=== PATIENT | male | born 1990 | race Two or more races ===

== ENCOUNTER 2016-11-06 14:48 | Inpatient (IN) | payer SELFPAY ==
[~2016-11-06] VITALS: Ht 167.6 cm; Wt 79.4 kg
[~2016-11-06 14:48] MED LIST: POT20T PO; VITAMINS; [UNRECOGNIZED DRUG - OTHER]
[2016-11-06] MEDS ORDERED: KETOROLAC TROMETH 30 MG/ML 1ML VIAL IV ONE (15:45)
[2016-11-06] MEDS ORDERED: SODIUM CHLORIDE 0.9% 1,000 ML IV ONE (15:45)
[2016-11-06 15:59] LABS: Basophils # (auto) 0.1 uL; Basophils % (auto) 0.4 % (0.0-2.0); DEFINITIVE VIEW TRANSMISSION; Eosinophils # (auto) 0.3 uL; Eosinophils % (auto) 2.4 % (0.0-7.0); Hematocrit 51.2 % (41.0-53.0); Hemoglobin 17.4 g/dL (13.5-17.5); Lymphocytes # (auto) 2.3 uL; Lymphocytes % (auto) 16.6 % (10.0-50.0); Mean Corpuscular Hemoglobin 28.9 pg (28.0-32.0); Mean Corpuscular Volume 84.9 fL (80.0-100.0); Mean Platelet Volume 8.8 fL (7.4-10.4); Monocytes # (auto) 0.8 uL; Monocytes % (auto) 5.8 % (0.0-12.0); Neutrophils # (auto) 10.2 uL; Neutrophils % (auto) 74.8 % (37.0-80.0); Platelet Count (auto) 342 10^3/uL (140-450); Red Cell Distribution Width 12.7 % (11.6-16.0); White Blood Cell 13.6 10^3/uL (4.4-10.8)
[2016-11-06 16:17] LABS: BUN/Creatinine Ratio 12.2; Calcium 8.9 mg/dL (8.5-10.1)
[2016-11-06 16:26] LABS: Bilirubin, Total 0.3 mg/dL (0.2-1.0); Total Protein 8.1 g/dL (6.4-8.2)
[2016-11-06 16:31] LABS: Potassium 1.7 mmol/L (3.5-5.1)
[2016-11-06] MEDS ORDERED: NITROGLYCERIN 0.4 MG SL TAB SL PRN (16:45)
[2016-11-06] MEDS ORDERED: HYDROcodone-ACET 5/325MG TAB PO PRN (16:45)
[2016-11-06] MEDS ORDERED: POTASSIUM CHL 20 Meq TABLET PO ONE (16:45)
[2016-11-06] MEDS ORDERED: POTASSIUM CHL 20MEQ/100ML 100 ML IV ONE (16:45)
[2016-11-06] MEDS ORDERED: LACTULOSE 20Gm/30ML SOLN PO PRN (16:45)
[2016-11-06] MEDS ORDERED: MORPHINE SULF INJ 2 MG/ML SYRINGE 1ML IV PRN ×2 (16:45)
[2016-11-06] MEDS ORDERED: TEMAZEPAM 15 MG CAP PO PRN (16:45)
[2016-11-06] MEDS ORDERED: LORazepam 0.5 MG TAB PO PRN (16:45)
[2016-11-06] MEDS ORDERED: ACETAMINOPHEN 500 MG TAB PO PRN (16:45)
[2016-11-06] MEDS ORDERED: PROCHLORPERAZINE EDISYLATE 5 MG/ML 2ML VIAL IV PRN (16:45)
[2016-11-06] MEDS ORDERED: cefTRIAXone 1GM/50ML D5W 50 ML IV ONE (17:30)
[2016-11-06] MEDS: SOD CHL 0.9%/ KCL 40MEQ 1,000 ML IV SCH (18:00)
[2016-11-06] MEDS: POTASSIUM CHL 20 Meq TABLET PO SCH ×2 (18:22→22:06)
[2016-11-06 20:00] VITALS: BP 117/63
[2016-11-06 22:00] VITALS: BP 117/63
[2016-11-07] MEDS: POTASSIUM CHL 20 Meq TABLET PO SCH ×2 (01:49→05:34)
[2016-11-07] MEDS: SOD CHL 0.9%/ KCL 40MEQ 1,000 ML IV SCH (02:34)
[2016-11-07 05:00] VITALS: BP_SYST 101; BP_SYST 104; BP_DIAS 60
[2016-11-07 05:26] LABS: Basophils # (auto) 0 uL; Basophils % (auto) 0.4 % (0.0-2.0); DEFINITIVE VIEW TRANSMISSION; Eosinophils # (auto) 0.8 uL; Eosinophils % (auto) 8.4 % (0.0-7.0); Hematocrit 44.2 % (41.0-53.0); Hemoglobin 14.9 g/dL (13.5-17.5); Lymphocytes # (auto) 3.1 uL; Lymphocytes % (auto) 31.8 % (10.0-50.0); Mean Corpuscular Hemoglobin 28.9 pg (28.0-32.0); Mean Corpuscular Hgb Conc. 33.8 g/dL (32.0-36.0); Mean Corpuscular Volume 85.6 fL (80.0-100.0); Mean Platelet Volume 9.1 fL (7.4-10.4); Monocytes # (auto) 0.6 uL; Monocytes % (auto) 6.2 % (0.0-12.0); Neutrophils # (auto) 5.3 uL; Neutrophils % (auto) 53.2 % (37.0-80.0); Platelet Count (auto) 307 10^3/uL (140-450); Red Cell Distribution Width 13.4 % (11.6-16.0); White Blood Cell 9.9 10^3/uL (4.4-10.8)
[2016-11-07 05:56] LABS: Albumin 3.2 g/dL (3.4-5.0); BUN/Creatinine Ratio 9.8; Bilirubin, Total 0.5 mg/dL (0.2-1.0); Calcium 7.9 mg/dL (8.5-10.1); Potassium 3.9 mmol/L (3.5-5.1); Total Protein 6.5 g/dL (6.4-8.2)
[2016-11-07 08:00] VITALS: BP 107/74
[2016-11-07 09:00] VITALS: BP 107/74
[2016-11-07] MEDS ORDERED: cefTRIAXone 1GM/50ML D5W 50 ML IV SCH (09:00)
[2016-11-07 09:42] VITALS: BP 107/74
[2016-11-07 12:42] LABS: Urine Bilirubin Negative (Negative); Urine Blood Negative /uL (Negative); Urine Color Yellow (Yellow); Urine Glucose Normal (Normal); Urine Ketone Negative (Negative); Urine Nitrite Negative (Negative); Urine RBC <1 /hpf (0 - 3); Urine Squamous Epithelial Cell FEW /hpf (<5); Urine Urobilinogen Normal (Negative)
== END 2016-11-07 11:10 | disposition home or self-care (01) | DRG 93 ==
LOC: ER 14:48 → TELE 14:49 → TELE-CENTR 19:50
PROVIDERS: ADMIT Internal Medicine; ATTEND Internal Medicine
DX: G72.3 Periodic paralysis (principal); F12.90 Cannabis use, unspecified, uncomplicated; N20.0 Calculus of kidney; R63.1 Polydipsia; Z83.3 Family history of diabetes mellitus; Z79.899 Other long term (current) drug therapy
CPT/HCPCS: 36415; 71010; 76775; 80053; 80061; 81001; 82533; 84133; 85025; 85652; 87086; 93005; 96365; 96375; 99291; J0696; J1885; J3480

== ENCOUNTER 2022-07-29 17:37 | Inpatient (IN) | payer MEDICAID ==
[~2022-07-29] VITALS: Ht 170.2 cm; Wt 83.1 kg
[~2022-07-29 17:37] MED LIST changes: -VITAMINS; -[UNRECOGNIZED DRUG - OTHER]
[2022-07-29] MEDS ORDERED: SODIUM CHLORIDE 0.9% 1,000 ML IV ONE ×3 (18:15→21:30)
[2022-07-29 18:20] LABS: Basophils # (auto) 0 10 ^3/uL (0-0.2); Basophils % (auto) 0.2 % (0.0-2.0); Eosinophils # (auto) 0.2 10 ^3/uL (0-0.8); Eosinophils % (auto) 1.3 % (0.0-7.0); Hematocrit 48.9 % (41.0-53.0); Hemoglobin 16.6 g/dL (13.5-17.5); Lymphocytes # (auto) 2.6 10 ^3/uL (0.4-5.4); Lymphocytes % (auto) 16.2 % (10.0-50.0); Mean Corpuscular Hemoglobin 29.3 pg (28.0-32.0); Monocytes % (auto) 6.4 % (0.0-12.0); Neutrophils # (auto) 12.4 10 ^3/uL (1.6-8.6); Neutrophils % (auto) 75.9 % (37.0-80.0); Nucleated Red Blood Cells % 0.2 %; Red Blood Cells 5.68 10^6/uL (4.5-5.90); Red Cell Distribution Width 13.4 % (11.8-14.3); White Blood Cell 16.3 10^3/uL (4.4-10.8)
[2022-07-29 18:34] LABS: Albumin 3.9 g/dL (3.4-5.0); BUN/Creatinine Ratio 16.7; Calcium 9.2 mg/dL (8.5-10.1); Magnesium 2.5 mg/dL (1.6-2.6)
[2022-07-29 18:36] LABS: Bilirubin, Total 0.4 mg/dL (0.2-1.0); Total Protein 7.9 g/dL (6.4-8.2)
[2022-07-29 18:40] LABS: Potassium 1.9 mmol/L (3.5-5.1)
[2022-07-29] MEDS ORDERED: POTASSIUM CHL 20 Meq TABLET PO ONE (18:45)
[2022-07-29] MEDS ORDERED: ACETAMINOPHEN 325 MG TAB PO PRN (21:30)
[2022-07-29] MEDS ORDERED: NITROGLYCERIN 0.4 MG SL TAB SL PRN (21:30)
[2022-07-29] MEDS ORDERED: MORPHINE SULFATE INJ 2 MG/ml SYRG IV PRN (21:30)
[2022-07-30] MEDS: SODIUM CHLORIDE 0.9% 1,000 ML IV SCH ×6 (03:21→22:00)
[2022-07-30 05:41] LABS: Basophils # (auto) 0 10 ^3/uL (0-0.2); Basophils % (auto) 0.4 % (0.0-2.0); Eosinophils # (auto) 0.5 10 ^3/uL (0-0.8); Eosinophils % (auto) 4.5 % (0.0-7.0); Hemoglobin 14.9 g/dL (13.5-17.5); Lymphocytes # (auto) 2.8 10 ^3/uL (0.4-5.4); Lymphocytes % (auto) 26.4 % (10.0-50.0); Mean Corpuscular Hemoglobin 29.1 pg (28.0-32.0); Mean Corpuscular Hgb Conc. 33.9 g/dL (32.0-36.0); Mean Corpuscular Volume 85.9 fL (80.0-100.0); Monocytes # (auto) 0.8 10 ^3/uL (0-1.3); Monocytes % (auto) 7.2 % (0.0-12.0); Neutrophils # (auto) 6.5 10 ^3/uL (1.6-8.6); Neutrophils % (auto) 61.5 % (37.0-80.0); Nucleated Red Blood Cells % 0.1 %; Red Blood Cells 5.12 10^6/uL (4.5-5.90); Red Cell Distribution Width 13.4 % (11.8-14.3); White Blood Cell 10.6 10^3/uL (4.4-10.8)
[2022-07-30 06:03] LABS: Albumin 3.1 g/dL (3.4-5.0); BUN/Creatinine Ratio 10.4; Calcium 7.5 mg/dL (8.5-10.1)
[2022-07-30 06:06] LABS: Bilirubin, Total 0.7 mg/dL (0.2-1.0); Total Protein 6.4 g/dL (6.4-8.2)
[2022-07-30 06:21] LABS: Potassium 2.4 mmol/L (3.5-5.1)
[2022-07-30] MEDS ORDERED: POTASSIUM CHL 20MEQ/100ML 100 ML IV ONE ×2 (09:23→11:18)
[2022-07-30] MEDS: POTASSIUM CHL 20MEQ/100ML 100 ML IV SCH ×2 (09:24→11:19)
[2022-07-30 21:50] LABS: Albumin 3.7 g/dL (3.4-5.0); BUN/Creatinine Ratio 5.3; Calcium 8.5 mg/dL (8.5-10.1)
[2022-07-30 21:52] LABS: Bilirubin, Total 0.6 mg/dL (0.2-1.0); Total Protein 7.3 g/dL (6.4-8.2)
[2022-07-30 22:11] VITALS: BP 106/57
[2022-07-30 22:26] LABS: Potassium 2.9 mmol/L (3.5-5.1)
[2022-07-31] MEDS: SODIUM CHLORIDE 0.9% 1,000 ML IV SCH ×4 (00:10→21:53)
[2022-07-31] MEDS: POTASSIUM CHL 20MEQ/100ML 100 ML IV SCH ×6 (00:30→23:57)
[2022-07-31 05:00] VITALS: BP 104/62
[2022-07-31 08:22] LABS: Basophils # (auto) 0.1 10 ^3/uL (0-0.2); Basophils % (auto) 0.6 % (0.0-2.0); Eosinophils # (auto) 0.4 10 ^3/uL (0-0.8); Eosinophils % (auto) 4.4 % (0.0-7.0); Hematocrit 44.2 % (41.0-53.0); Hemoglobin 16.1 g/dL (13.5-17.5); Lymphocytes % (auto) 31.2 % (10.0-50.0); Mean Corpuscular Hemoglobin 30.9 pg (28.0-32.0); Mean Corpuscular Hgb Conc. 36.3 g/dL (32.0-36.0); Monocytes # (auto) 0.8 10 ^3/uL (0-1.3); Monocytes % (auto) 8.4 % (0.0-12.0); Neutrophils # (auto) 5.3 10 ^3/uL (1.6-8.6); Neutrophils % (auto) 55.4 % (37.0-80.0); Nucleated Red Blood Cells % 0.8 %; Red Cell Distribution Width 13.4 % (11.8-14.3); White Blood Cell 9.6 10^3/uL (4.4-10.8)
[2022-07-31 08:40] LABS: Calcium 8.2 mg/dL (8.5-10.1)
[2022-07-31 08:47] LABS: Albumin 3.7 g/dL (3.4-5.0); BUN/Creatinine Ratio 5.7; Bilirubin, Total 0.6 mg/dL (0.2-1.0); Magnesium 2.4 mg/dL (1.6-2.6); Total Protein 6.8 g/dL (6.4-8.2)
[2022-07-31 09:00] VITALS: BP 117/68
[2022-07-31] MEDS ORDERED: POTASSIUM CHL 20 Meq TABLET PO ONE (09:15)
[2022-07-31 13:00] VITALS: BP 113/72
[2022-07-31 17:00] VITALS: BP 102/55
[2022-07-31 17:30] LABS: Urine Bacteria NONE SEEN /hpf (None Seen); Urine Blood Negative /uL (Negative); Urine Specific Gravity 1.012 (1.001-1.035); Urine WBC 1 /hpf (0 - 3)
[2022-07-31 19:38] LABS: Albumin 4.1 g/dL (3.4-5.0); BUN/Creatinine Ratio 5.5; Calcium 9.2 mg/dL (8.5-10.1); Potassium 3.1 mmol/L (3.5-5.1)
[2022-07-31 19:41] LABS: Bilirubin, Total 0.5 mg/dL (0.2-1.0); Total Protein 8.6 g/dL (6.4-8.2)
[2022-07-31] MEDS ORDERED: POTASSIUM EFFERVESENT TAB 25 MEQ GT ONE (21:00)
[2022-07-31] MEDS ORDERED: POTASSIUM EFFERVESENT TAB 25 MEQ PO ONE (21:30)
[2022-07-31 21:58] VITALS: BP 110/56
[2022-08-01] MEDS: POTASSIUM CHL 20MEQ/100ML 100 ML IV SCH (02:06)
[2022-08-01] MEDS: SODIUM CHLORIDE 0.9% 1,000 ML IV SCH ×2 (04:00→09:25)
[2022-08-01 05:00] VITALS: BP 107/59
[2022-08-01 08:09] LABS: Basophils # (auto) 0.1 10 ^3/uL (0-0.2); Basophils % (auto) 0.8 % (0.0-2.0); Eosinophils # (auto) 0.3 10 ^3/uL (0-0.8); Eosinophils % (auto) 3.3 % (0.0-7.0); Hematocrit 48.9 % (41.0-53.0); Hemoglobin 17.3 g/dL (13.5-17.5); Lymphocytes # (auto) 3.2 10 ^3/uL (0.4-5.4); Lymphocytes % (auto) 34.3 % (10.0-50.0); Mean Corpuscular Hemoglobin 30.6 pg (28.0-32.0); Mean Corpuscular Hgb Conc. 35.3 g/dL (32.0-36.0); Mean Corpuscular Volume 86.5 fL (80.0-100.0); Monocytes # (auto) 0.9 10 ^3/uL (0-1.3); Monocytes % (auto) 9.2 % (0.0-12.0); Neutrophils # (auto) 4.9 10 ^3/uL (1.6-8.6); Neutrophils % (auto) 52.4 % (37.0-80.0); Nucleated Red Blood Cells % 0.1 %; Red Blood Cells 5.65 10^6/uL (4.5-5.90); Red Cell Distribution Width 13.7 % (11.8-14.3); White Blood Cell 9.3 10^3/uL (4.4-10.8)
[2022-08-01 08:27] LABS: Calcium 8.8 mg/dL (8.5-10.1); Potassium 3.8 mmol/L (3.5-5.1)
[2022-08-01 08:31] LABS: BUN/Creatinine Ratio 5.7; Bilirubin, Total 0.9 mg/dL (0.2-1.0); Total Protein 7.1 g/dL (6.4-8.2)
[2022-08-01 09:05] VITALS: BP 116/63
[2022-08-01] MEDS ORDERED: POTASSIUM CHL 20 Meq TABLET PO ONE (11:30)
[2022-08-01] MEDS ORDERED: POTA-220 PO (12:26)
[2022-08-01 13:00] VITALS: BP 121/83
== END 2022-08-01 15:00 | disposition home or self-care (01) | DRG 351 ==
LOC: ER 17:37 → TELE 21:24 → TELE-WESTW 07-30 18:50
PROVIDERS: ADMIT Nurse Practitioner Family; ATTEND Internal Medicine
DX: M62.82 Rhabdomyolysis (principal); D72.829 Elevated white blood cell count, unspecified; E87.6 Hypokalemia; R74.01 Elevation of levels of liver transaminase levels; Z20.822 Contact with and (suspected) exposure to COVID-19; F12.90 Cannabis use, unspecified, uncomplicated
CPT/HCPCS: 36415; 80053; 81001; 82550; 83735; 84133; 85025; 87040; 87426; 93005; 96360; 96361; 99291; G0378; J3480

== ENCOUNTER 2025-03-05 09:48 | Inpatient (IN) | payer MEDICAID, OTHER ==
[~2025-03-05] VITALS: Ht 170.2 cm; Wt 90.9 kg
[~2025-03-05 09:48] MED LIST changes: -POT20T PO; +POTA-220 PO
[2025-03-05] MEDS: SODIUM CHLORIDE 0.9% 1,000 ML IV ONE (10:00)
--- NOTE | 2025-03-05 10:32 | ED.PDOC ---
Back pain HPI HPI Comments 34 y/o MNOHEMY, presents to the ED for CC of generalized body pain. EMS reports, patient is coming from home where he c/o generalized musculoskeletal pain with associated weakness x1day. Patient relays, to have experienced similar symptoms in the past when potassium levels are low; believes to be having a hypokalemia crisis. Patient comments, that he does taken potassium capsules as prescribed by his PCP however, has been out of prescription [id number]. Patient denies nausea, vomiting, chills, dizziness, or cold symptoms. No other symptoms or modifying factors present at this time. Chief Complaint: Body Pain Time Seen by MD: 10:00 Primary Care Provider: none Reviewed Notes: Nurses Notes, Short Piece Handler Notes, Medications, Allergies Allergies: Coded Allergies: NO KNOWN ALLERGIES (Unverified , 12/18/10) Home Meds Active Scripts Potassium Chloride (Klor-Con M20) 20 Meq Tab, 40 MEQ PO DAILY for 30 Days, #60 TAB 6 Refills Prov:PATTI MCCLELLAN MD 08/01/22 Information Source: Patient, Emergency Med Personnel Mode of Arrival: EMS Timing: Days Duration: Since onset Location of Back pain: Other (genralized body pain) Severity: Moderate Prehospital treatment: None Onset: Spontaneous History of: None Modifying Factors: Nothing Past Medical History PAST MEDICAL HISTORY: Denies Surgical History: Denies all surgeries Family History Family History: Unknown Social History Smoker: Non-Smoker Alcohol: Denies ETOH Use Drugs: Marijuana Lives In: Home Constitutional: reports: weakness; denies: chills, diaphoresis, fatigue, fever, malaise, sweats, others EENTM: denies: blurred vision, double vision, ear bleeding, ear discharge, ear drainage, ear pain, ear ringing, eye pain, eye redness, hearing loss, mouth pain, mouth swelling, nasal discharge, nose bleeding, nose congestion, nose pain, photophobia, tearing, throat pain, throat swelling, voice changes, others Respiratory: denies: cough, hemoptysis, orthopnea, SOB at rest, shortness of breath, SOB with excertion, stridor, wheezing, others Cardiovascular: denies: chest pain, dizzy spells, diaphoresis, Dyspnea on exertion, edema, irregular heart beat, left arm pain, lightheadedness, palpitations, PND, syncope, others Gastrointestinal: denies: abdomen distended, abdominal pain, blood streaked bowels, constipated, diarrhea, dysphagia, difficulty swallowing, hematemesis, melena, nausea, poor appetite, poor fluid intake, rectal bleeding, rectal pain, vomiting, others Genitourinary: denies: burning, dysuria, flank pain, frequency, hematuria, incontinence, penile discharge, penile sore, pain, testicle pain, testicle swelling, urgency, others Neurological: denies: dizziness, fainting, headache, left sided numbness, left sided weakness, numbness, paresthesia, pre-existing deficit, right sided numbness, right sided weakness, seizure, speech problems, tingling, tremors, weakness, others Musculoskeletal: reports: others (genralized body pain); denies: back pain, gout, joint pain, joint swelling, muscle pain, muscle stiffness, neck pain Integumetry: denies: bruises, change in color, change in hair/nails, dryness, laceration, lesions, lumps, rash, wounds, others Allergic/Immunocompromised: denies: Difficulty Healing, Frequent Infections, Hives, Itching, others Hematologic/Lymphatic: denies: anemia, blood clots, easy bleeding, easy bruising, swollen glands, others Endocrine: denies: excessive hunger, excessive sweating, excessive thirst, excessive urination, flushing, intolerance to cold, intolerance to heat, unexplained weight gain, unexplained weight loss, others Psychiatric: denies: anxiety, bipolar disorder, depression, hopeless, panic disorder, schizophrenia, sleepless, suicidal, others All Other Systems: Reviewed and Negative Physical Exam General Appearance: No Apparent Distress, Normal HEENT: Normal ENT Inspection, Pharynx Normal Neck: Full Range of Motion, Non-Tender, Normal, Normal Inspection Respiratory: Chest Non-Tender, Lungs Clear, No Accessory Muscle Use, No Respiratory Distress, Normal Breath Sounds Cardiovascular: No Edema, No Murmur, No Gallop, Normal Peripheral Pulses, Regular Rate/Rhythm Breast Exam: Deferred Gastrointestinal: No Organomegaly, Non Tender, No Pulsatile Mass, Normal Bowel Sounds, Soft Genitalia: Deferred Pelvic: Deferred Rectal: Deferred Extremities: No calf tenderness, Normal capillary refill, Normal inspection, Normal range of motion, Non-tender, No pedal edema Musculoskeletal : Apperance: Normal Neurologic: Alert, research management associate II-XII nml as Tested, No Motor Deficits, Normal Affect, Normal Mood, No Sensory Deficits Cerebellar Function: Normal Reflexes: Normal Skin: Dry, Normal Color, Warm Lymphatic: No Adenopathy Was a procedure done? Was a procedure done?: No Back Pain Differential Dx Differential Diagnosis: Musculoskeletal Pain, Other (hypokalemia) X-Ray, Labs, Meds, VS Vital Signs Date Time Temp Pulse Resp B/P (MAP) Pulse Ox O2 Delivery O2 Flow Rate FiO2 03/05/25 13:00 57 136/72 (93) 99 03/05/25 13:00 57 99 Room Air* 0 21 03/05/25 11:15 98.3 72 24 133/75 (94) 99 98.3 03/05/25 10:00 56 03/05/25 09:58 98.1 60 18 135/76 100 98.1 Lab Test 03/05/25 15:29 03/05/25 10:52 Range/Units Urine Color Light-yellow Yellow Urine Clarity Clear Clear Urine pH 6.5 5.0-9.0 Urine Specific [place] 1.014 1.001-1.035 Urine Protein Negative Negative Urine Ketones 1+ H Negative Urine Blood Negative Negative /uL Urine Nitrite Negative Negative Urine Bilirubin Negative Negative Urine Urobilinogen Normal Negative mg/dL Urine Leukocyte Esterase Negative Negative /uL Urine RBC 2 0 - 3 /hpf Urine Microscopic WBC 2 0-3 /HPF Urine Squamous Epithelial Cells None seen <5 /hpf Urine Bacteria None seen None Seen /hpf Urine Glucose Normal Normal mg/dL White Blood Count 14.5 H 4.4-10.8 10^3/uL Red Blood Count 6.19 H 4.5-5.90 10^6/uL Hemoglobin 18.8 H 13.5-17.5 g/dL Hematocrit 52.2 41.0-53.0 % Mean Corpuscular Volume 84.3 80.0-100.0 fL Mean Corpuscular Hemoglobin 30.4 28.0-32.0 pg Mean Corpuscular Hemoglobin Concent 36.1 H 32.0-36.0 g/dL Red Cell Distribution Width 13.2 11.8-14.3 % Platelet Count 313 140-450 10^3/uL Mean Platelet Volume 8.2 6.9-10.8 fL Neutrophils (%) (Auto) 78.1 37.0-80.0 % Lymphocytes (%) (Auto) 14.8 10.0-50.0 % Monocytes (%) (Auto) 6.6 0.0-12.0 % Eosinophils (%) (Auto) 0.1 0.0-7.0 % Basophils (%) (Auto) 0.4 0.0-2.0 % Neutrophils # (Auto) 11.3 H 1.6-8.6 10 ^3/uL Lymphocytes # (Auto) 2.1 0.4-5.4 10 ^3/uL Monocytes # (Auto) 0.9 0-1.3 10 ^3/uL Eosinophils # (Auto) 0 0-0.8 10 ^3/uL Basophils # (Auto) 0.1 0-0.2 10 ^3/uL Nucleated Red Blood Cells 0.1 % Sodium Level 143 136-145 mmol/L Potassium Level 1.5 *L 3.5-5.1 mmol/L Chloride Level 108 H 98-107 mmol/L Carbon Dioxide Level 21 20-31 mmol/L Anion Gap 14 5-15 Blood Urea Nitrogen 9 9-23 mg/dL Creatinine 0.85 0.700-1.30 mg/dL Glomerular Filtration Rate Calc 118 >90 mL/min BUN/Creatinine Ratio 10.6 10.0-20.0 Serum Glucose 124 H 74-106 mg/dL Calcium Level 9.6 8.7-10.4 mg/dL Phosphorus Level 0.5 L 2.4-5.1 mg/dL Magnesium Level 1.9 1.6-2.6 mg/dL Current Medications Medications (Trade) Dose Ordered Sig/Bhaskar Route Start Time Stop Time Status Last Admin Sodium Chloride 1,000 ml @ 1,000 mls/hr Q1H ONCE IV 03/05/25 10:00 03/05/25 10:59 DC 03/05/25 10:00 Potassium Chloride 100 ml @ 50 mls/hr Q2H IV 03/05/25 14:30 03/05/25 22:29 03/05/25 16:38 Time of 1ST Reevaluation: 10:30 Reevaluation 1ST: Unchanged Patient Education/Counseling: Diagnosis, Treatment Family Education/Counseling: No Family Present SEPSIS Sepsis Screen Date sepsis recognized/suspect: Mar 05, 2025 Time Sepsis recognized/suspect: 955 Recent Procedure: No On Antibiotic Therapy: No Respiratory Rate >20: No Heart Rate >90: No Temp<36 C (96.8 F) or >38.3 C: No SBP <90 or MAP <65 mmHG: No New Acute Mental Status Change: No Is the patient on CPAP, BIPAP,: No Physician Orders Electrocardigram (03/05/25 09:55) Electrocardigram (03/05/25 09:54) Potassium Chl 20meq/100ml (03/05/25 14:30) Vital Signs Date Time Temp Pulse Resp B/P (MAP) Pulse Ox O2 Delivery O2 Flow Rate FiO2 03/05/25 13:00 57 136/72 (93) 99 03/05/25 13:00 57 99 Room Air* 0 21 03/05/25 11:15 98.3 72 24 133/75 (94) 99 98.3 03/05/25 10:00 56 03/05/25 09:58 98.1 60 18 135/76 100 98.1 Laboratory Tests Test 03/05/25 10:52 White Blood Count 14.5 10^3/uL (4.4-10.8) H Medications Medications Dose Ordered Sig/Bhaskar Route Start Time Stop Time Status Last Admin Dose Admin Potassium Chloride 100 ml @ 50 mls/hr Q2H IV 03/05/25 14:30 03/05/25 22:29 03/05/25 16:38 Sodium Chloride 1,000 ml @ 1,000 mls/hr Q1H ONCE IV 03/05/25 10:00 03/05/25 10:59 DC 03/05/25 10:00 Departure 1 Departure Time of Disposition: 17:24 (Patient with severe hypokalemia and muscle weakness. We will admit patient for further workup and expert consultation) Impression: Primary Impression: Hypokalemia Additional Impression: Generalized weakness Disposition: ADMITTED INPATIENT Admit to: Tele Condition: Guarded Critical Care Note Critical Care Time?: Yes Critical care comment: Severe hypokalemia and generalized weakness Authorized and Performed by: Ramona Lindsey MD Total critical care time: Approximately 39 minutes Due to a high probability of clinically significant, life threatening deterioration, the patient required my highest level of preparedness to intervene emergently and I personally spent this critical care time directly and personally managing the patient. This critical care time included obtaining a history; examining the patient; pulse oximetry; ordering and review of studies; arranging urgent treatment with development of a management plan; evaluation of patient's response to treatment; frequent reassessment; and, discussions with other providers. This critical care time was performed to assess and manage the high probability of imminent, life-threatening deterioration that could result in multi-organ failure. It was exclusive of separately billable procedures and treating other patients and teaching time. Please see my other sections and the rest of the note for further information on patient assessment and treatment. Stability Stability form required: No Heart Score Heart Score: Heart Score Response (Comments) Value History N/A 0 EKG N/A 0 Age N/A 0 Risk Factors N/A 0 Troponin N/A 0 Total 0 I personally scribed for RAMONA LINDSEY MD ([email or web address]) on 03/05/25 at 10:32. Electronically submitted by Alivia Solis ([email or web address]). RAMONA LINDSEY MD Mar 05, 2025 10:32
[2025-03-05 11:14] LABS: Hemoglobin 18.8 g/dL (13.5-17.5)
[2025-03-05 11:16] LABS: Hematocrit 52.2 % (41.0-53.0); Mean Corpuscular Hemoglobin 30.4 pg (28.0-32.0); Mean Corpuscular Volume 84.3 fL (80.0-100.0); Nucleated Red Blood Cells % 0.1 %
[2025-03-05 11:24] LABS: Anion Gap 14 (5-15); Carbon Dioxide 21 mmol/L (20-31); Sodium 143 mmol/L (136-145)
[2025-03-05 11:25] LABS: Calcium 9.6 mg/dL (8.7-10.4)
[2025-03-05 11:30] LABS: BUN/Creatinine Ratio 10.6 (10.0-20.0); Magnesium 1.9 mg/dL (1.6-2.6)
[2025-03-05 11:34] LABS: Blood Urea Nitrogen 9 mg/dL (9-23); Chloride 108 mmol/L (98-107); Glucose 124 mg/dL (74-106)
[2025-03-05 11:35] LABS: Potassium 1.5 mmol/L (3.5-5.1)
[2025-03-05] MEDS: POTASSIUM CHLORIDE 20 MEQ, LIDOCAINE 1% (LOCAL ANESTH.) 2 ML in SODIUM CHL 0.9% 100 ML IV ONE (12:30)
[2025-03-05] MEDS: POTASSIUM CHL 20MEQ/100ML 100 ML IV ONE (12:37)
[2025-03-05 13:00] VITALS: PULSE 57; O2SAT 99
[2025-03-05] MEDS: POTASSIUM CHL 20MEQ/100ML 100 ML IV SCH ×2 (14:39→23:13)
[2025-03-05 15:38] LABS: Urine Protein, UAD Negative (Negative)
[2025-03-05] MEDS ORDERED: DOCUSATE SOD 100 MG CAP PO PRN (15:45)
[2025-03-05] MEDS ORDERED: ACETAMINOPHEN 325 MG TAB PO PRN (15:45)
[2025-03-05] MEDS ORDERED: TEMAZEPAM 15 MG CAP PO PRN (15:45)
[2025-03-05] MEDS ORDERED: NITROGLYCERIN 0.4 MG SL TAB SL PRN (15:45)
[2025-03-05] MEDS ORDERED: HYDROcodone-ACET 5/325MG TAB PO PRN (15:45)
[2025-03-05] MEDS ORDERED: ONDANSETRON HCL 4 MG/2 ML VIAL IV PRN (15:45)
[2025-03-05] MEDS ORDERED: MORPHINE SULFATE INJ 2 MG/ml SYRG IV PRN ×2 (15:45)
--- NOTE | 2025-03-05 15:46 | DVHHP2 ---
Admitting Diagnosis: Generalized weakness with severe hypokalemia History of Present Illness This is a 34-year-old male that presents today with symptoms of generalized weakness due to severe hypokalemia. Patient was admitted in 2022 with similar like symptoms. Patient had rhabdomyolysis leukocytosis which was thought to be reactive and chronic marijuana use disorder. Patient reportedly has had severe hypokalemia since the age of 19 and normally takes potassium supplements however he has been out for the past month. While in the emergency room department, the patient was evaluated by the [facility] provider. As per the provider, labs, vitals, and imaging were monitored. Potassium was 1.5. Aggressive Electrolyte replacement in process. Mild EKG changes. The patient will be admitted for further evaluation and treatment. PatientI discussed admission with the patient and the patient is in agreement to the treatment plan. I had a long discussion with a patient regarding code status. Patient is a full code. will be close to monitoring in the ICU and continued potassium. Replacement until levels are normalized. Past Medical History Chronic hypokalemia marijuana used disorder Past Surgical History Unknown Family History Unknown Social History Smoker: Non-Smoker Alcohol: Denies ETOH Use Drugs: Marijuana Lives In: Home Constitutional: reports: weakness; denies: chills, diaphoresis, fatigue, fever, malaise, sweats, others EENTM: denies: blurred vision, double vision, ear bleeding, ear discharge, ear drainage, ear pain, ear ringing, eye pain, eye redness, hearing loss, mouth pain, mouth swelling, nasal discharge, nose bleeding, nose congestion, nose pain, photophobia, tearing, throat pain, throat swelling, voice changes, others Respiratory: denies: cough, hemoptysis, orthopnea, SOB at rest, shortness of breath, SOB with excertion, stridor, wheezing, others Cardiovascular: denies: chest pain, dizzy spells, diaphoresis, Dyspnea on exertion, edema, irregular heart beat, left arm pain, lightheadedness, palpitations, PND, syncope, others Gastrointestinal: denies: abdomen distended, abdominal pain, blood streaked bowels, constipated, diarrhea, dysphagia, difficulty swallowing, hematemesis, melena, nausea, poor appetite, poor fluid intake, rectal bleeding, rectal pain, vomiting, others Genitourinary: denies: burning, dysuria, flank pain, frequency, hematuria, incontinence, penile discharge, penile sore, pain, testicle pain, testicle s welling, urgency, others Neurological: denies: dizziness, fainting, headache, left sided numbness, left sided weakness, numbness, paresthesia, pre-existing deficit, right sided numbness, right sided weakness, seizure, speech problems, tingling, tremors, weakness, others Musculoskeletal: reports: others (genralized body pain); denies: back pain, gout, joint pain, joint swelling, muscle pain, muscle stiffness, neck pain Integumetry: denies: bruises, change in color, change in hair/nails, dryness, laceration, lesions, lumps, rash, wounds, others Allergic/Immunocompromised: denies: Difficulty Healing, Frequent Infections, Hives, Itching, others Hematologic/Lymphatic: denies: anemia, blood clots, easy bleeding, easy bruising, swollen glands, others Endocrine: denies: excessive hunger, excessive sweating, excessive thirst, excessive urination, flushing, intolerance to cold, intolerance to heat, unexplained weight gain, unexplained weight loss, others Psychiatric: denies: anxiety, bipolar disorder, depression, hopeless, panic disorder, schizophrenia, sleepless, suicidal, others All Other Systems: Reviewed and Negative Patient Family History: Patient reports no known family medical history. Allergies: Coded Allergies: NO KNOWN ALLERGIES (Unverified , 12/18/10) Home Meds Active Scripts Potassium Chloride (Klor-Con M20) 20 Meq Tab, 40 MEQ PO DAILY for 30 Days, #60 TAB 6 Refills Prov:PATTI MCCLELLAN MD 08/01/22 Current Medications Current Medications Medications (Trade) Dose Ordered Sig/Bhaskar Route PRN Reason Start Time Stop Time Status Last Admin Potassium Chloride 100 ml @ 50 mls/hr Q2H IV 03/05/25 14:30 03/05/25 22:29 03/05/25 18:48 Sodium Chloride 1,000 ml @ 120 mls/hr Q8H20M IV 03/05/25 15:45 03/05/25 16:20 Acetaminophen/ Hydrocodone Bitart (Spencer 5/325MG Tab) 1 tab Q4HP PRN PO MODERATE PAIN (4-6 PAIN SCALE) 03/05/25 15:45 Temazepam (Restoril) 15 mg QHSP PRN PO FOR INSOMNIA 03/05/25 15:45 Ondansetron HCl (Zofran) 4 mg Q4HP PRN IV NAUSEA / VOMITING 03/05/25 15:45 Docusate Sodium (Colace Capsule) 100 mg BIDPRN PRN PO FOR CONSTIPATION 03/05/25 15:45 Enoxaparin Sodium (Lovenox) 40 mg DAILY SC 03/06/25 10:00 Acetaminophen (Tylenol Tablet) 650 mg Q6HP PRN PO PAIN SCALE 1-3 OR TEMP>100.4 03/05/25 15:45 Morphine Sulfate 2 mg Q4HPRN PRN IV SEVERE PAIN (7-10 PAIN SCALE) 03/05/25 15:45 Potassium Chloride 100 ml @ 50 mls/hr Q2H IV 03/05/25 22:30 03/06/25 04:29 Nitroglycerin (Ntrostat Sublingual) 0.4 mg Q5MINP PRN SL FOR CHEST PAIN 03/05/25 15:45 Morphine Sulfate 2 mg Q30M PRN IV FOR CHEST PAIN 03/05/25 15:45 Magnesium Sulfate/ Dextrose 100 ml @ 100 mls/hr Q1HR IV 03/05/25 20:00 03/05/25 21:59 UNV Vital Signs Vital Signs Date Time Temp Pulse Resp B/P (MAP) Pulse Ox O2 Delivery O2 Flow Rate FiO2 03/05/25 18:00 63 16 124/66 (85) 97 03/05/25 13:00 Room Air* 0 21 03/05/25 11:15 98.3 98.3 Physical Exam General Appearance: No Apparent Distress, Normal HEENT: Normal ENT Inspection, Pharynx Normal Neck: Full Range of Motion, Non-Tender, Normal, Normal Inspection Respiratory: Chest Non-Tender, Lungs Clear, No Accessory Muscle Use, No Respiratory Distress, Normal Breath Sounds Cardiovascular: No Edema, No Murmur, No Gallop, Normal Peripheral Pulses, Regular Rate/Rhythm Breast Exam: Deferred Gastrointestinal: No Organomegaly, Non Tender, No Pulsatile Mass, Normal Bowel Sounds, Soft Genitalia: Deferred Pelvic: Deferred Rectal: Deferred Extremities: No calf tenderness, Normal capillary refill, Normal inspection, Normal range of motion, Non-tender, No pedal edema Musculoskeletal : Apperance: Normal Neurologic: Alert, ship purser II-XII nml as Tested, No Motor Deficits, Normal Affect, Normal Mood, No Sensory Deficits Cerebellar Function: Normal Reflexes: Normal Skin: Dry, Normal Color, Warm Lymphatic: No Adenopathy SEPSIS Sepsis Screen Date sepsis recognized/suspect: Mar 05, 2025 Time Sepsis recognized/suspect: 955 Recent Procedure: No On Antibiotic Therapy: No Respiratory Rate >20: No Heart Rate >90: No Temp<36 C (96.8 F) or >38.3 C: No SBP <90 or MAP <65 mmHG: No New Acute Mental Status Change: No Is the patient on CPAP, BIPAP,: No Physician Orders Electrocardigram (03/05/25 09:55) Electrocardigram (03/05/25 09:54) Potassium Chl 20meq/100ml (03/05/25 14:30) Admit (03/05/25 15:41) Code Status (03/05/25 15:41) Sodium Chloride 0.9% (03/05/25 15:45) Hydrocodone-Acet 5/325mg Tab (Spencer 5/32 (03/05/25 15:45) Temazepam (Restoril) (03/05/25 15:45) Ondansetron Hcl (Zofran) (03/05/25 15:45) Docusate Sodium Capsule (Colace Capsule) (03/05/25 15:45) Enoxaparin Sodium (Lovenox) (03/06/25 10:00) Complete Blood Count (03/06/25 04:00) Comprehensive Metabolic Panel (03/06/25 04:00) Condition: Critical (03/05/25 15:41) Acetaminophen Tablet (Tylenol Tablet) (03/05/25 15:45) Morphine Sulfate Injection (03/05/25 15:45) Sequential Compression Device (03/05/25 ) Potassium Chl 20meq/100ml (03/05/25 22:30) Nitroglycerin Sublingual (Ntrostat Subli (03/05/25 15:45) Morphine Sulfate Injection (03/05/25 15:45) Stat Ekg For Chest Pain (03/05/25 15:41) Notify Md Of Changes From Base (03/05/25 15:41) Tin Assorter For 24 Hours (03/05/25 15:41) Emergency Dysrhythmia Protocol (03/05/25 15:41) Rhythm Strips Once Every Shift (03/05/25 15:41) Oxygen By Nasal Cannula (03/05/25 15:41) *[facility] (03/05/25 15:41) Potassium (03/05/25 18:46) Potassium Phosphate (03/05/25 19:15) Magnesium Sulfate 1gm/100ml (03/05/25 20:00) Creatine Kinase (03/05/25 19:06) Drug Screen (03/05/25 19:07) Vital Signs Date Time Temp Pulse Resp B/P (MAP) Pulse Ox O2 Delivery O2 Flow Rate FiO2 03/05/25 18:00 63 16 124/66 (85) 97 03/05/25 17:00 61 16 120/66 (84) 98 03/05/25 16:00 76 128/78 (95) 97 03/05/25 16:00 76 03/05/25 15:00 58 16 120/78 (92) 96 03/05/25 14:00 56 16 116/65 (82) 95 03/05/25 13:00 57 136/72 (93) 99 03/05/25 13:00 57 14 136/72 (93) 99 03/05/25 13:00 57 99 Room Air* 0 21 03/05/25 11:15 98.3 72 24 133/75 (94) 99 98.3 03/05/25 10:00 56 03/05/25 09:58 98.1 60 18 135/76 100 98.1 Laboratory Tests Test 03/05/25 10:52 White Blood Count 14.5 10^3/uL (4.4-10.8) H Medications Medications Dose Ordered Sig/Bhaskar Route Start Time Stop Time Status Last Admin Dose Admin Potassium Chloride 100 ml @ 50 mls/hr Q2H IV 03/05/25 14:30 03/05/25 22:29 03/05/25 18:48 Sodium Chloride 1,000 ml @ 120 mls/hr Q8H20M IV 03/05/25 15:45 03/05/25 16:20 Sodium Chloride 1,000 ml @ 1,000 mls/hr Q1H ONCE IV 03/05/25 10:00 03/05/25 10:59 DC 03/05/25 10:00 Results Labs Test 03/05/25 16:10 03/05/25 15:29 03/05/25 10:52 Range/Units Potassium Level 2.2 *L 3.5-5.1 mmol/L Urine Color Light-yellow Yellow Urine Clarity Clear Clear Urine pH 6.5 5.0-9.0 Urine Specific [place] 1.014 1.001-1.035 Urine Protein Negative Negative Urine Ketones 1+ H Negative Urine Blood Negative Negative /uL Urine Nitrite Negative Negative Urine Bilirubin Negative Negative Urine Urobilinogen Normal Negative mg/dL Urine Leukocyte Esterase Negative Negative /uL Urine RBC 2 0 - 3 /hpf Urine Microscopic WBC 2 0-3 /HPF Urine Squamous Epithelial Cells None seen <5 /hpf Urine Bacteria None seen None Seen /hpf Urine Glucose Normal Normal mg/dL White Blood Count 14.5 H 4.4-10.8 10^3/uL Red Blood Count 6.19 H 4.5-5.90 10^6/uL Hemoglobin 18.8 H 13.5-17.5 g/dL Hematocrit 52.2 41.0-53.0 % Mean Corpuscular Volume 84.3 80.0-100.0 fL Mean Corpuscular Hemoglobin 30.4 28.0-32.0 pg Mean Corpuscular Hemoglobin Concent 36.1 H 32.0-36.0 g/dL Red Cell Distribution Width 13.2 11.8-14.3 % Platelet Count 313 140-450 10^3/uL Mean Platelet Volume 8.2 6.9-10.8 fL Neutrophils (%) (Auto) 78.1 37.0-80.0 % Lymphocytes (%) (Auto) 14.8 10.0-50.0 % Monocytes (%) (Auto) 6.6 0.0-12.0 % Eosinophils (%) (Auto) 0.1 0.0-7.0 % Basophils (%) (Auto) 0.4 0.0-2.0 % Neutrophils # (Auto) 11.3 H 1.6-8.6 10 ^3/uL Lymphocytes # (Auto) 2.1 0.4-5.4 10 ^3/uL Monocytes # (Auto) 0.9 0-1.3 10 ^3/uL Eosinophils # (Auto) 0 0-0.8 10 ^3/uL Basophils # (Auto) 0.1 0-0.2 10 ^3/uL Nucleated Red Blood Cells 0.1 % Sodium Level 143 136-145 mmol/L Chloride Level 108 H 98-107 mmol/L Carbon Dioxide Level 21 20-31 mmol/L Anion Gap 14 5-15 Blood Urea Nitrogen 9 9-23 mg/dL Creatinine 0.85 0.700-1.30 mg/dL Glomerular Filtration Rate Calc 118 >90 mL/min BUN/Creatinine Ratio 10.6 10.0-20.0 Serum Glucose 124 H 74-106 mg/dL Calcium Level 9.6 8.7-10.4 mg/dL Phosphorus Level 0.5 L 2.4-5.1 mg/dL Magnesium Level 1.9 1.6-2.6 mg/dL Primary Diagnosis Severe hypokalemia Admitting Diagnosis: Generalized weakness Rhabdomyolysis Leukocytosis, most likely reactive Marijuana use disorder Plan Patient will be admitted with aggressive IV hydration. Will replace electrolytes and check potassium and magnesium and phosphorus. Will check a CK level. Nephrology consult. Plan discussed with: Patient Problems List: (1) Cannabis use disorder Status: Chronic Assessment & Plan: educated patient on risks of chronic marijuana use (2) Hypokalemia Status: Chronic Assessment & Plan: replace electrolytes and check labs frequently (3) Generalized weakness Status: Acute Assessment & Plan: replace electrolytes (4) Rhabdomyolysis Status: Acute Assessment & Plan: obtain ck level. IV fluids Code Visit Code Visit Total Time (mins): 45 HAYLEY KITCHEN NP Mar 05, 2025 15:46
[2025-03-05] MEDS: SODIUM CHLORIDE 0.9% 1,000 ML IV SCH (16:20)
[2025-03-05 19:30] VITALS: O2SAT 98
[2025-03-05 19:46] LABS: Cannabinoid Screen, Urine Pos (NEGATIVE)
[2025-03-05 19:47] LABS: Amphetamine Screen, Urine Neg (NEGATIVE); Barbiturate Scree,Urine Neg (NEGATIVE); Benzodiazephine Screen, Urine Neg (NEGATIVE); Cocaine Screen, Urine Neg (NEGATIVE); Opiate Scree,Urine Neg (NEGATIVE); Phencyclidine Screen, Urine Neg (NEGATIVE)
[2025-03-05] MEDS: MAGNESIUM SULFATE 1GM/100ML 100 ML IV SCH (20:30)
[2025-03-05] MEDS: POTASSIUM PHOSPHATE 44 MEQ in D5W 5% 250 ML IV ONE (23:00)
[2025-03-06] MEDS: POTASSIUM CHL 20MEQ/100ML 100 ML IV SCH (05:15)
[2025-03-06 07:10] LABS: Alanine Aminotransferase 23 U/L (7-40); Albumin 4.1 g/dL (3.2-4.8); Alkaline Phosphatase 65 U/L (46-116); Anion Gap 9 (5-15); BUN/Creatinine Ratio 8.2 (10.0-20.0); Bilirubin, Total 0.8 mg/dL (0.2-1.0); Carbon Dioxide 29 mmol/L (20-31); Chloride 105 mmol/L (98-107); Glucose 96 mg/dL (74-106); Sodium 143 mmol/L (136-145); Total Protein 6.6 g/dL (5.7-8.2)
[2025-03-06 07:18] LABS: Blood Urea Nitrogen 7 mg/dL (9-23); Calcium 7.7 mg/dL (8.7-10.4); Potassium 2.8 mmol/L (3.5-5.1)
[2025-03-06 07:26] LABS: Magnesium 2.1 mg/dL (1.6-2.6)
[2025-03-06 07:27] LABS: Hematocrit 46.0 % (41.0-53.0); Hemoglobin 16.4 g/dL (13.5-17.5); Mean Corpuscular Hemoglobin 30.2 pg (28.0-32.0); Mean Corpuscular Volume 85.0 fL (80.0-100.0); Nucleated Red Blood Cells % 0.2 %
[2025-03-06 08:00] VITALS: PULSE 69; RESP 16; O2SAT 98
[2025-03-06] MEDS: ENOXAPARIN SOD 40 MG/0.4 ML SYRINGE SC SCH (10:00)
[2025-03-06] MEDS: COLCHICINE 0.6 MG CAP PO ONE (10:00)
[2025-03-06] MEDS: POTASSIUM CHL 20 Meq TABLET PO SCH ×2 (10:18→15:00)
[2025-03-06] MEDS: POTASSIUM CHL 20MEQ/100ML 100 ML IV ONE (12:30)
[2025-03-06 14:00] LABS: Anion Gap 5 (5-15); Carbon Dioxide 31 mmol/L (20-31); Chloride 106 mmol/L (98-107); Sodium 142 mmol/L (136-145)
[2025-03-06 14:02] LABS: Calcium 8.5 mg/dL (8.7-10.4); Potassium 3.2 mmol/L (3.5-5.1)
[2025-03-06 14:05] LABS: Glucose 89 mg/dL (74-106)
[2025-03-06 14:06] LABS: BUN/Creatinine Ratio 6.7 (10.0-20.0); Blood Urea Nitrogen 6 mg/dL (9-23)
--- NOTE | 2025-03-06 16:55 | DVHINCON2 ---
Date of service: Mar 06, 2025 Referring Physician flex Reason for Consultation hypokalemia History of Present Illness 34 years old male past medical history of chronic hypokalemia, excessive marijuana use for the past 15 plus years, presented with chief complaints of generalized weakness nausea vomitings for one day Prior to that he denies any vomitings He says for the past five years he has been using excessive marijuana He ran out of potassium supplements and therefore not taking any potassium Unhealthy lifestyle habits Past Medical History per hpi Past Surgical History Per HPI Allergies: Coded Allergies: NO KNOWN ALLERGIES (Unverified , 12/18/10) Home Meds Active Scripts Potassium Chloride (Klor-Con M20) 20 Meq Tab, 40 MEQ PO DAILY for 30 Days, #60 TAB 6 Refills Prov:PATTI MCCLELLAN MD 08/01/22 Current Medications Current Medications Medications (Trade) Dose Ordered Sig/Bhaskar Route PRN Reason Start Time Stop Time Status Last Admin Enoxaparin Sodium (Lovenox) 40 mg DAILY SC 03/06/25 10:00 Potassium Chloride 100 ml @ 50 mls/hr Q2H IV 03/05/25 22:30 03/06/25 04:29 DC Magnesium Sulfate/ Dextrose 100 ml @ 100 mls/hr Q1HR IV 03/05/25 20:00 03/05/25 21:59 DC 03/05/25 23:00 Potassium Chloride 100 ml @ 50 mls/hr Q2H IV 03/06/25 05:15 03/06/25 11:14 DC 03/06/25 10:20 Potassium Chloride (Klor-Con Tablet) 40 meq DAILY PO 03/06/25 10:00 03/06/25 10:18 Potassium Chloride (Klor-Con Tablet) 40 meq Q1H PO 03/06/25 14:00 03/06/25 15:01 DC 03/06/25 15:08 Family History: Patient reports no known family medical history. Review of Systems As listed in HPI H&P Exam Vital Signs/I&O Vital Sign Date Time Temp Pulse Resp B/P (MAP) Pulse Ox O2 Delivery O2 Flow Rate FiO2 03/06/25 16:00 70 03/06/25 12:30 16 104/60 (75) 95 03/06/25 08:00 98.2 98.2 03/06/25 08:00 Room Air* 0 21 Intake and Output 03/05/25 03/06/25 19:00 07:00 Intake Total 352 ml 1420.0 ml Balance 352 ml 1420.0 ml Intake IV Total 352 ml 1420.0 ml Physical Exam General-not in any distress HEENT-normocephalic, no icterus, no pallor, neck supple Respiratory-fair air entry bilateral, no rhonchi, no wheeze [id number] heard, no murmurs appreciated Abdominal-soft, nontender, nondistended Musculoskeletal-no pedal edema, no calf tenderness Genitourinary-deferred Neuro-awake alert oriented x3, Psychiatric-not agitated, cooperative, Labs/Diagnostic Data Labs/Diagnostic Data Laboratory Tests Test 03/06/25 14:30 03/06/25 13:32 03/06/25 13:30 03/06/25 06:03 Range/Units Sodium Level 142 143 136-145 mmol/L Potassium Level 3.2 L 2.8 L 3.5-5.1 mmol/L Chloride Level 106 105 98-107 mmol/L Carbon Dioxide Level 31 29 20-31 mmol/L Anion Gap 5 9 5-15 Blood Urea Nitrogen 6 L 7 L 9-23 mg/dL Creatinine 0.90 0.85 0.700-1.30 mg/dL Glomerular Filtration Rate Calc 116 118 >90 mL/min BUN/Creatinine Ratio 6.7 L 8.2 L 10.0-20.0 Serum Glucose 89 96 74-106 mg/dL Calcium Level 8.5 L 7.7 L 8.7-10.4 mg/dL Blood Gas Specimen Type Venous Blood Gas Sample Site Right brachial Blood Gas Patient Temperature 37.0 Arterial Blood Date Drawn [id number] Santi Test N/a Venous Blood pH 7.452 H 7.320-7.430 Venous Blood pCO2 at Patient Temp 39.1 38.0-54.0 mmHg Venous Blood pO2 at Patient Temp < 36.5 23.0-48.0 mmHg Venous Blood HCO3 26.7 22.0-29.0 mmol/L Venous Bld O2 Saturation (Measured) 51.8 L 60.0-85.0 % Venous Blood Base Excess 2.7 -2.0-3.0 mmol/L Venous Blood Total Hemoglobin 17.9 H 13.5-17.5 g/dL Venous Blood Oxyhemoglobin 50.8 0.0-79.0 % Venous Blood Carboxyhemoglobin 1.3 0.5-1.5 % Venous Blood Methemoglobin 0.6 0.0-1.5 % Blood Gas Modality Room air FiO2 % 21.0 Blood Gas Comments drawn by rn White Blood Count 13.5 H 4.4-10.8 10^3/uL Red Blood Count 5.41 4.5-5.90 10^6/uL Hemoglobin 16.4 13.5-17.5 g/dL Hematocrit 46.0 # 41.0-53.0 % Mean Corpuscular Volume 85.0 80.0-100.0 fL Mean Corpuscular Hemoglobin 30.2 28.0-32.0 pg Mean Corpuscular Hemoglobin Concent 35.5 32.0-36.0 g/dL Red Cell Distribution Width 13.1 11.8-14.3 % Platelet Count 275 140-450 10^3/uL Mean Platelet Volume 8.3 6.9-10.8 fL Neutrophils (%) (Auto) 67.2 37.0-80.0 % Lymphocytes (%) (Auto) 24.0 10.0-50.0 % Monocytes (%) (Auto) 7.5 0.0-12.0 % Eosinophils (%) (Auto) 1.1 0.0-7.0 % Basophils (%) (Auto) 0.2 0.0-2.0 % Neutrophils # (Auto) 9.1 H 1.6-8.6 10 ^3/uL Lymphocytes # (Auto) 3.2 0.4-5.4 10 ^3/uL Monocytes # (Auto) 1.0 0-1.3 10 ^3/uL Eosinophils # (Auto) 0.2 0-0.8 10 ^3/uL Basophils # (Auto) 0 0-0.2 10 ^3/uL Nucleated Red Blood Cells 0.2 % Phosphorus Level 2.9 2.4-5.1 mg/dL Magnesium Level 2.1 1.6-2.6 mg/dL Total Bilirubin 0.8 0.2-1.0 mg/dL Aspartate Amino Transferase (AST) 27 13-40 U/L Alanine Aminotransferase (ALT) 23 7-40 U/L Alkaline Phosphatase 65 46-116 U/L Total Protein 6.6 5.7-8.2 g/dL Albumin 4.1 3.2-4.8 g/dL Test 03/05/25 19:30 03/05/25 16:10 03/05/25 15:29 03/05/25 10:52 Range/Units Potassium Level 2.7 L 2.2 *L 1.5 *L 3.5-5.1 mmol/L Creatine Kinase 241 H 46-171 U/L Urine Color Light-yellow Yellow Urine Clarity Clear Clear Urine pH 6.5 5.0-9.0 Urine Specific [place] 1.014 1.001-1.035 Urine Protein Negative Negative Urine Ketones 1+ H Negative Urine Blood Negative Negative /uL Urine Nitrite Negative Negative Urine Bilirubin Negative Negative Urine Urobilinogen Normal Negative mg/dL Urine Leukocyte Esterase Negative Negative /uL Urine RBC 2 0 - 3 /hpf Urine Microscopic WBC 2 0-3 /HPF Urine Squamous Epithelial Cells None seen <5 /hpf Urine Bacteria None seen None Seen /hpf Urine Glucose Normal Normal mg/dL Urine Opiates Screen Neg NEGATIVE Urine Fentanyl Screen Neg NEGATIVE Urine Barbiturates Screen Neg NEGATIVE Urine Phencyclidine Screen Neg NEGATIVE Urine Amphetamines Screen Neg NEGATIVE Urine Benzodiazepines Screen Neg NEGATIVE Urine Cocaine Screen Neg NEGATIVE Urine Cannabinoids Screen Pos NEGATIVE White Blood Count 14.5 H 4.4-10.8 10^3/uL Red Blood Count 6.19 H 4.5-5.90 10^6/uL Hemoglobin 18.8 H 13.5-17.5 g/dL Hematocrit 52.2 41.0-53.0 % Mean Corpuscular Volume 84.3 80.0-100.0 fL Mean Corpuscular Hemoglobin 30.4 28.0-32.0 pg Mean Corpuscular Hemoglobin Concent 36.1 H 32.0-36.0 g/dL Red Cell Distribution Width 13.2 11.8-14.3 % Platelet Count 313 140-450 10^3/uL Mean Platelet Volume 8.2 6.9-10.8 fL Neutrophils (%) (Auto) 78.1 37.0-80.0 % Lymphocytes (%) (Auto) 14.8 10.0-50.0 % Monocytes (%) (Auto) 6.6 0.0-12.0 % Eosinophils (%) (Auto) 0.1 0.0-7.0 % Basophils (%) (Auto) 0.4 0.0-2.0 % Neutrophils # (Auto) 11.3 H 1.6-8.6 10 ^3/uL Lymphocytes # (Auto) 2.1 0.4-5.4 10 ^3/uL Monocytes # (Auto) 0.9 0-1.3 10 ^3/uL Eosinophils # (Auto) 0 0-0.8 10 ^3/uL Basophils # (Auto) 0.1 0-0.2 10 ^3/uL Nucleated Red Blood Cells 0.1 % Sodium Level 143 136-145 mmol/L Chloride Level 108 H 98-107 mmol/L Carbon Dioxide Level 21 20-31 mmol/L Anion Gap 14 5-15 Blood Urea Nitrogen 9 9-23 mg/dL Creatinine 0.85 0.700-1.30 mg/dL Glomerular Filtration Rate Calc 118 >90 mL/min BUN/Creatinine Ratio 10.6 10.0-20.0 Serum Glucose 124 H 74-106 mg/dL Calcium Level 9.6 8.7-10.4 mg/dL Phosphorus Level 0.5 L 2.4-5.1 mg/dL Magnesium Level 1.9 1.6-2.6 mg/dL Assessment Acute on Chronic hypokalemia Excessive marijuana abuse Obesity Metabolic alkalosis Recommendations Potassium chloride KCL p.o. 80 mEq use daily--continue on discharge as well Recommend to stop marijuana abuse Check urine potassium urine creatinine urine chloride renin Nishant levels Workup can be followed up as outpatient Patient will need outpatient workup for renal salt wasting syndromes after stopping marijuana abuse--- Marijuana also proven to cause hypokalemia--therefore before considering all these workup patient has to stop marijuana abuse for at least one year Discussed in detail with spouse and patient bedside Continue IV fluids NS IV This hospital has limited urine electrolyte workup panel Reviewed vital signs, lab work, imaging studies, medications, microbiology, other physician recommendations Total time spent 80 minutes More than 50% of the time spent providing direct [id number] care . Thank you for allowing me to participate in the care of your patient. Plan discussed with: Patient, Spouse CHUN HAINES MD Mar 06, 2025 16:55
[2025-03-06 17:00] VITALS: TEMP 98
[2025-03-06 17:30] VITALS: BP 105/67; PULSE 70; RESP 16; O2SAT 95
--- NOTE | 2025-03-06 19:21 | DVHPN2 ---
Progress Note - Dictate Date Seen: Mar 06, 2025 Medical Necessity Reason Pt with a Central, PICC or Fol: No vital signs Vital Sign Date Time Temp Pulse Resp B/P (MAP) Pulse Ox O2 Delivery O2 Flow Rate FiO2 03/06/25 17:30 70 16 105/67 (80) 95 03/06/25 17:00 98.0 98.0 03/06/25 08:00 Room Air* 0 21 Total Intake and Output 03/05/25 03/05/25 03/06/25 15:00 23:00 07:00 Intake Total 112 ml 460 ml 1200.0 ml Balance 112 ml 460 ml 1200.0 ml medications Current Medications Medications Dose Ordered Sig/Bhaskar Route Start Time Stop Time Status Last Admin Dose Admin Sodium Chloride 1,000 ml @ 120 mls/hr Q8H20M IV 03/05/25 15:45 03/06/25 17:00 120 MLS/HR Acetaminophen/ Hydrocodone Bitart 1 tab Q4HP PRN PO 03/05/25 15:45 Temazepam 15 mg QHSP PRN PO 03/05/25 15:45 Ondansetron HCl 4 mg Q4HP PRN IV 03/05/25 15:45 Docusate Sodium 100 mg BIDPRN PRN PO 03/05/25 15:45 Enoxaparin Sodium 40 mg DAILY SC 03/06/25 10:00 Acetaminophen 650 mg Q6HP PRN PO 03/05/25 15:45 Morphine Sulfate 2 mg Q4HPRN PRN IV 03/05/25 15:45 Nitroglycerin 0.4 mg Q5MINP PRN SL 03/05/25 15:45 Morphine Sulfate 2 mg Q30M PRN IV 03/05/25 15:45 Potassium Chloride 40 meq BID PO 03/07/25 10:00 laboratory and microbiology Laboratory Tests 03/06/25 13:32 03/06/25 06:03 Test 03/06/25 13:32 Range/Units Serum Glucose 89 74-106 mg/dL Assessment/Plan Subjective Patient was admitted overnight to ICU for severe hypokalemia. Patient was seen by nephrology and electrolytes were replaced throughout the night. Patient now stable to downgrade to the telemetry floor. Work up ongoing for causes of hypokalemia, marijuana could be the cause. Objective Physical Exam HEENT: Normal ENT Inspection, Pharynx Normal Neck: Full Range of Motion, Non-Tender, Normal, Normal Inspection Respiratory: Chest Non-Tender, Lungs Clear, No Accessory Muscle Use, No Respiratory Distress, Normal Breath Sounds Cardiovascular: No Edema, No Murmur, No Gallop, Normal Peripheral Pulses, Regular Rate/Rhythm Breast Exam: Deferred Gastrointestinal: No Organomegaly, Non Tender, No Pulsatile Mass, Normal Bowel Sounds, Soft Genitalia: Deferred Pelvic: Deferred Rectal: Deferred Extremities: No calf tenderness, Normal capillary refill, Normal inspection, Normal range of motion, Non-tender, No pedal edema Musculoskeletal : Appearance: Normal Neurologic: Alert, outpatient clerk II-XII nml as Tested, No Motor Deficits, Normal Affect, Normal Mood, No Sensory Deficits Cerebellar Function: Normal Reflexes: Normal Skin: Dry, Normal Color, Warm Lymphatic: No Adenopathy Assessment and Plan (1) Cannabis use disorder Status: Chronic Assessment & Plan: educated patient on risks of chronic marijuana use (2) Hypokalemia Status: Chronic Assessment & Plan: replace electrolytes and check labs frequently (3) Generalized weakness Status: Acute Assessment & Plan: replace electrolytes (4) Rhabdomyolysis Status: Acute Assessment & Plan: obtain ck level. IV fluids Plan discussed with: Patient, Other ANGELIC DHILLON MD Mar 06, 2025 19:21
[2025-03-07] MEDS ORDERED: POTASSIUM CHL 20 Meq TABLET PO SCH (10:00)
--- NOTE | 2025-03-07 12:13 | DVHDS2 ---
Discharge Summary Date of Admission Mar 05, 2025 at 15:41 Date of Discharge: Mar 06, 2025 Admitting Diagnosis Hypokalemia Rabdomyolysis Chronic absorption disorder of potassium Chronic cannabis use Labs/Diagnostic Data: Laboratory Results Test 03/06/25 13:32 03/06/25 13:30 03/06/25 06:03 03/05/25 16:10 Sodium Level 142 mmol/L (136-145) Potassium Level 3.2 mmol/L (3.5-5.1) Chloride Level 106 mmol/L (98-107) Carbon Dioxide Level 31 mmol/L (20-31) Anion Gap 5 (5-15) Blood Urea Nitrogen 6 mg/dL (9-23) Creatinine 0.90 mg/dL (0.700-1.30) Glomerular Filtration Rate Calc 116 mL/min (>90) BUN/Creatinine Ratio 6.7 (10.0-20.0) Serum Glucose 89 mg/dL (74-106) Uric Acid 6.4 mg/dL (3.7-9.2) Calcium Level 8.5 mg/dL (8.7-10.4) Blood Gas Specimen Type Venous Blood Gas Sample Site Right brachial Blood Gas Patient Temperature 37.0 Arterial Blood Date Drawn [id number] Santi Test N/a Venous Blood pH 7.452 (7.320-7.430) Venous Blood pCO2 at Patient Temp 39.1 mmHg (38.0-54.0) Venous Blood pO2 at Patient Temp < 36.5 mmHg (23.0-48.0) Venous Blood HCO3 26.7 mmol/L (22.0-29.0) Venous Bld O2 Saturation (Measured) 51.8 % (60.0-85.0) Venous Blood Base Excess 2.7 mmol/L (-2.0-3.0) Venous Blood Total Hemoglobin 17.9 g/dL (13.5-17.5) Venous Blood Oxyhemoglobin 50.8 % (0.0-79.0) Venous Blood Carboxyhemoglobin 1.3 % (0.5-1.5) Venous Blood Methemoglobin 0.6 % (0.0-1.5) Blood Gas Modality Room air FiO2 % 21.0 Blood Gas Comments drawn by rn White Blood Count 13.5 10^3/uL (4.4-10.8) Red Blood Count 5.41 10^6/uL (4.5-5.90) Hemoglobin 16.4 g/dL (13.5-17.5) Hematocrit 46.0 % (41.0-53.0) Mean Corpuscular Volume 85.0 fL (80.0-100.0) Mean Corpuscular Hemoglobin 30.2 pg (28.0-32.0) Mean Corpuscular Hemoglobin Concent 35.5 g/dL (32.0-36.0) Red Cell Distribution Width 13.1 % (11.8-14.3) Platelet Count 275 10^3/uL (140-450) Mean Platelet Volume 8.3 fL (6.9-10.8) Neutrophils (%) (Auto) 67.2 % (37.0-80.0) Lymphocytes (%) (Auto) 24.0 % (10.0-50.0) Monocytes (%) (Auto) 7.5 % (0.0-12.0) Eosinophils (%) (Auto) 1.1 % (0.0-7.0) Basophils (%) (Auto) 0.2 % (0.0-2.0) Neutrophils # (Auto) 9.1 10 ^3/uL (1.6-8.6) Lymphocytes # (Auto) 3.2 10 ^3/uL (0.4-5.4) Monocytes # (Auto) 1.0 10 ^3/uL (0-1.3) Eosinophils # (Auto) 0.2 10 ^3/uL (0-0.8) Basophils # (Auto) 0 10 ^3/uL (0-0.2) Nucleated Red Blood Cells 0.2 % Phosphorus Level 2.9 mg/dL (2.4-5.1) Magnesium Level 2.1 mg/dL (1.6-2.6) Total Bilirubin 0.8 mg/dL (0.2-1.0) Aspartate Amino Transferase (AST) 27 U/L (13-40) Alanine Aminotransferase (ALT) 23 U/L (7-40) Alkaline Phosphatase 65 U/L (46-116) Total Protein 6.6 g/dL (5.7-8.2) Albumin 4.1 g/dL (3.2-4.8) Creatine Kinase 241 U/L (46-171) Test 03/05/25 15:29 Urine Color Light-yellow (Yellow) Urine Clarity Clear (Clear) Urine pH 6.5 (5.0-9.0) Urine Specific [place] 1.014 (1.001-1.035) Urine Protein Negative (Negative) Urine Ketones 1+ (Negative) Urine Blood Negative /uL (Negative) Urine Nitrite Negative (Negative) Urine Bilirubin Negative (Negative) Urine Urobilinogen Normal mg/dL (Negative) Urine Leukocyte Esterase Negative /uL (Negative) Urine RBC 2 /hpf (0 - 3) Urine Microscopic WBC 2 /HPF (0-3) Urine Squamous Epithelial Cells None seen /hpf (<5) Urine Bacteria None seen /hpf (None Seen) Urine Glucose Normal mg/dL (Normal) Urine Opiates Screen Neg (NEGATIVE) Urine Fentanyl Screen Neg (NEGATIVE) Urine Barbiturates Screen Neg (NEGATIVE) Urine Phencyclidine Screen Neg (NEGATIVE) Urine Amphetamines Screen Neg (NEGATIVE) Urine Benzodiazepines Screen Neg (NEGATIVE) Urine Cocaine Screen Neg (NEGATIVE) Urine Cannabinoids Screen Pos (NEGATIVE) Other Laboratory Tests 03/06/25 13:32 03/06/25 06:03 Brief Hx & Hospital Course: This is a 34-year-old male that has had known chronic potassium absorption disorder 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 Apparently patient takes potassium supplements however he has been out for the past month. Patient presented to the hospital with complaints of generalized weakness. His potassium level was 1.5. Patient was admitted into the ICU and he was given around the clock replacements of potassium, Oral and IV. Nephrology was also consulted. Per nephrology, chronic cannabis use could contribute to the malabsorption issues patient has been having. Patient was stabilize the ICU and subsequently downgraded to the telemetry floor. Nephrology had ongoing work up however patient decided to leave against medical advice. Patient was instructed to return to the emergency room if symptoms persisted and to follow up as soon as possible with his primary care provider Condition at Discharge: Undetermined Final Diagnosis/Problems List Hypokalemia most likely from chronic cannabis use Rabdomyolysis Generalized weakness- Resolved with IV hydration and electrolyte replacement Cannabis use- Advised about the effects, most likely contributing to his problems Problems List: (1) Hypokalemia Status: Chronic (2) Rhabdomyolysis Status: Acute (3) Cannabis use disorder Status: Chronic Discharge Disposition: AMA Discharge Instruct/Medications Diet: Regular Activity: No Restrictions, As Tolerated Scheduled Potassium Chloride (Klor-Con M20), 40 MEQ PO DAILY 30 Discharge Statement: "Patient was advised to return to the ER or call 911 if any headaches, dizziness, shortness of breath, chest pain, abdominal pain, bleeding, fevers, or worsening of medical condition. Patient was counseled about treatment plan, medications, possible side effects, patientverbalized understanding. All questions were answered to the best of my ability. This discharge took greater then 30 minutes in planning, reviewing documentation, counseling the patient, and discussing with other team members." ASSESSMENT ASSESSMENT Assessment HAYLEY KITCHEN NP Mar 07, 2025 12:13
--- NOTE | 2025-03-07 13:08 | ECG ---
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
== END 2025-03-06 20:38 | disposition left against medical advice (07) | DRG 425 ==
LOC: ER 09:48 → EDBD 09:48 → OVERFLOW 15:41
PROVIDERS: ADMIT Nurse Practitioner; ATTEND Nurse Practitioner
DX: E87.6 Hypokalemia (principal); E87.3 Alkalosis; M62.82 Rhabdomyolysis; T40.715A Adverse effect of cannabis, initial encounter; Z53.29 Procedure and treatment not carried out because of patient's decision for other reasons; F12.10 Cannabis abuse, uncomplicated; D72.829 Elevated white blood cell count, unspecified; E66.9 Obesity, unspecified; Z79.899 Other long term (current) drug therapy; Z68.31 Body mass index [BMI] 31.0-31.9, adult; Y92.89 Other specified places as the place of occurrence of the external cause
CPT/HCPCS: 36415; 36600; 80048; 80053; 80307; 81001; 82550; 82805; 83735; 84100; 84132; 84550; 85025; 93005; 96365; 99291; G0378; J2003; J3480; J7060